=== PATIENT | male | born 1955 | race Caucasian/White ===

== ENCOUNTER → 2024-11-08 | Outpatient (CLI) | payer MEDICARE, OTHER ==
--- NOTE | 2024-11-19 05:48 | EST ---
EXERCISE STRESS STUDY PERFORMED: Holter monitor. CLINICAL INFORMATION: Baseline rhythm is a sinus mechanism. The average rate 95 beats per minute, minimum 77, maximum 146 beats per minute. No atrial fibrillation was noted. Ventricular ectopic diverting was 2.3%. One triplet was noted. Supraventricular ectopic activity was noted in the form of rare single PACs. No symptoms were reported. CONCLUSION: 1. Sinus mechanism baseline rhythm. 2. Occasional ventricular ectopic activity with triplets noted. 3. Rare supraventricular ectopic activity. 4. No symptoms were reported. MMODL / IJN: [id number] /
== END | disposition home or self-care (01) ==
LOC: RADECHMAIN 08:10
PROVIDERS: ATTEND Family Medicine
DX: I49.3 Ventricular premature depolarization (principal); R00.0 Tachycardia, unspecified
CPT/HCPCS: 93225